=== PATIENT | male | born 1935 | race Hispanic/Latino ===

== ENCOUNTER 2018-02-18 19:09 | Inpatient (IN) | payer MEDICARE ==
[2018-02-18 19:44] LABS: #Lymphocytes 0.9 thou/uL (1.20-3.40); #Monocytes 0.5 thou/uL (0.11-0.59); #Neutrophils 6.6 thou/uL (1.40-6.50); %Eosinophils 0.3 % (0.0-10.0); %Monocytes 5.7 % (0.0-10.0); Hemoglobin 13.7 g/dL (14.0-18.0); Mean Corpuscular HGB CONC 33.6 g/dL (32.0-36.0); Mean Corpuscular Hemoglobin 31.7 pg (27.0-31.0); Mean Corpuscular Volume 94.3 fL (78.0-98.0); Mean Platelet Volume 7.6 fL (7.4-10.4); Platelet Count 140 thou/uL (130-400); RBC Distribution Width 13.5 % (11.5-14.5); Red Blood Cell (RBC) Count 4.33 mill/uL (4.70-6.10)
[2018-02-18 20:01] LABS: Troponin I 0.038 ng/mL (< 0.028)
[2018-02-18 20:18] LABS: ALT (SGPT) 35 U/L (8-55); AST (SGOT) 52 U/L (5-34); Albumin 3.3 g/dL (3.4-4.8); Alkaline Phosphatase 199 U/L (40-150); Anion Gap 17 mmol/L (10-20); BUN (Urea Nitrogen) 10 mg/dL (8.4-25.7); Bilirubin, Total 0.7 mg/dL (0.2-1.2); CK (CPK) 59 U/L (30-200); Calc. Creatinine Clearance 0 mL/min (70-130); Calcium 8.1 mg/dL (7.8-10.44); Carbon Dioxide 20 mmol/L (23-31); Chloride 107 mmol/L (98-107); Estimated GFR-MDRD 67; Globulin 3.1 g/dL (2.4-3.5); Glucose 117 mg/dL (83-110); Potassium 4.6 mmol/L (3.5-5.1); Protein, Total 6.4 g/dL (5.8-8.1); Sodium 139 mmol/L (136-145)
[2018-02-18 20:37] LABS: Bilirubin Negative (Negative); Blood, Urine Trace (Negative); Clarity CLEAR (Clear); Glucose, Urine (Dipstick) Negative (Negative); Leukocyte Small (Negative); Nitrite Negative (Negative); Protein, Urine (Dipstick) Negative (Neg-Trace)
[2018-02-18 20:39] LABS: Bacteria/HPF 2+ HPF (None Seen); Hyaline Casts/LPF 0-3 HYALINE CAST LPF (0-3 Hyaline); RBC/HPF 0-3 HPF (0-3); Squamous Epithelial None Seen HPF (0-3)
--- NOTE | 2018-02-18 20:59 | RAD ---
AP VIEW CHEST: 02/18/18 HISTORY: Cough, congestion, bodyaches. AP view chest is obtained on 02/18/18. AP view chest demonstrates a left subclavian Mediport catheter in place. The lungs are well aerated. No evidence of acute intrathoracic abnormality seen. No evidence of effusions, pneumonia or pneumotho rax seen. IMPRESSION: Unremarkable AP view chest. POS: [facility]
[2018-02-18] MEDS ORDERED: Carvedilol 6.25 MG TAB PO SCH (21:45)
[2018-02-18] MEDS ORDERED: Acetaminophen 325 MG TAB PO PRN (22:17)
[2018-02-18] MEDS ORDERED: Ondansetron ODT 4 MG TAB SL PRN (22:17)
[2018-02-18] MEDS ORDERED: Ondansetron PF 4 MG/2 ML Vial IVP PRN (22:17)
[2018-02-18 22:26] VITALS: BMI 24.7
[2018-02-18] MEDS ORDERED: cefTRIAXone\\ROCEPHIN 2 GM in Sodium Chloride 0.9% 100 ML IVPB SCH (23:00)
[2018-02-18 23:31] LABS: Lactic Acid 1.7 mmol/L (0.5-2.2)
[2018-02-19 08:54] LABS: INR-International Normal Ratio 1.9; PTT 45.1 SEC (22.9-36.1); Prothrombin Time 21.9 SEC (12.0-14.7)
[2018-02-19] MEDS ORDERED: Warfarin Sodium 1 MG TAB PO SCH (09:00)
[2018-02-19] MEDS ORDERED: Amlodipine 5 MG TAB PO SCH (09:00)
[2018-02-19] MEDS ORDERED: Carvedilol 6.25 MG TAB PO SCH (09:00)
[2018-02-19 09:03] LABS: Anion Gap 10 mmol/L (10-20); BUN (Urea Nitrogen) 12 mg/dL (8.4-25.7); Calc. Creatinine Clearance 68 mL/min (70-130); Calcium 8.3 mg/dL (7.8-10.44); Carbon Dioxide 26 mmol/L (23-31); Chloride 108 mmol/L (98-107); Estimated GFR-MDRD 73; Glucose 99 mg/dL (83-110); Potassium 3.8 mmol/L (3.5-5.1); Sodium 140 mmol/L (136-145)
[2018-02-19 09:09] LABS: Troponin I 0.051 ng/mL (< 0.028)
--- NOTE | 2018-02-19 09:20 | HP ---
CHIEF COMPLAINT: Cough. HISTORY OF PRESENT ILLNESS: This patient is an 83-year-old male, who has an active diagnosis of a sk in cancer that is growing out of his navel area. He does not know what kind it is. He says he is ge tting chemotherapy twice a month for 3 months and he is on his last cycle. He reports that 2 days ag o he started having cough and it became worse yesterday. He has a lot of noise that he can hear in h is chest, especially when he coughs, but he has not been able to produce much sputum. He has had no fever. No shortness of breath except when he is having paroxysms of cough. He has had no chest pain . He states that he actually is feeling much better at the moment than he did yesterday. REVIEW OF SYSTEMS: Ten-system review notable for some numbness, tingling and increased sensitivity i n his fingertips which he relates to the chemotherapy. He also reports that he has had some difficul ty swallowing cold liquids at times because he feels like he has increased sensitivity in his throat causing him to occasionally choke. Generally speaking, he does not have difficulty swallowing. Othe rwise, a 10-system review was negative except for those things mentioned in the history of present il lness. PAST MEDICAL HISTORY: Notable for prior colon cancer, the skin cancer as mentioned above, atrial fib rillation, hypertension. PAST SURGICAL HISTORY: Partial colon resection, secondary to colon cancer that was causing some dist al colonic obstruction. FAMILY HISTORY: He is unaware of any medical problems in his parents, believe they of "old age. " SOCIAL HISTORY: The patient is a nonsmoker, nondrinker, nondrug user. He is . He is [employer] and his or his son will be his surrogate decision makers. ALLERGIES: None. MEDICATIONS: Warfarin 0.5 mg p.o. q. day; Lanoxin 0.125 p.o. q. day; Coreg, dose is not actually kno wn; amlodipine, dose not known. PHYSICAL EXAMINATION: VITAL SIGNS: Temperature 98.3, T-max 99.7, pulse 99, respirations 18, O2 sat 94% on room air, blood pressure 130/81. GENERAL APPEARANCE: Age appropriate male. He is in no distress. He is awake, alert, oriented, plea ujles, cooperative, speaking in full sentences. HEENT: Pupils are reactive. He has significant bilateral arcus senilis. He has no OP lesions. Sli ghtly dry oral mucosa. NECK: Supple and symmetric. LUNGS: Have slightly diminished breath sounds. He has some modest rales/wheezing in the left base. ABDOMEN: Soft, nontender, nondistended, positive bowel sounds, no masses, no organomegaly. There is a 2 cm skin colored nodule growing out of the navel area with some slight drainage coming from aroun d this. EXTREMITIES: Warm and dry with no cyanosis, clubbing or edema. LABORATORY AND IMAGING DATA: White count was 8.0, hemoglobin 13.7, platelets 140, he has got 83 neut rophils, 11 lymphocytes. Sodium 139, potassium 4.6, chloride 107, CO2 of 20, BUN 10, creatinine 1.06 , glucose 117. Initial lactic acid 2.7, repeat 1.7. AST 52, ALT 35, alkaline phosphatase 199. Trop onin 0.038. Albumin 3.3. Urinalysis trace blood, small leukocyte esterase, 0-3 red cells, 4-6 white cells, 2+ bacteria. Chest x-ray was unremarkable. IMPRESSION AND PLAN: 1. Cough with a low grade fever and abnormal lung exam concerning for possibility of pneumonia. The patient had a negative initial chest x-ray. I am going to go ahead and repeat that now as I am conc erned that this may be manifesting at some point on the chest x-ray. He has been given vancomycin in the emergency department and now has Rocephin ordered. We will go ahead and add azithromycin to ful ly cover for community-acquired pneumonia. Not sure what the patient's chemotherapy regimen is, look s like he has got a relatively healthy immune system at this point. Also concerned about the fact th at he was reporting some choking when trying to drink cold liquids that he could have potentially had some element of aspiration. We will ask for speech therapy evaluation just to ensure his swallow is appropriate. 2. Atrial fibrillation. The patient has chronic atrial fibrillation. He is on digoxin and warfarin . Currently, he is rate controlled and his monitor shows what looks like atrial fibrillation with fr equent aberrancy. He did require some IV diltiazem last evening after his heart rate did not respond to initial fluid bolus, but he appears to be rate controlled now. We will check his INR. 3. Elevated troponin. This is likely due to acute illness and some atrial fibrillation. We will re check that value now. I suspect it is purely demand ischemia and do not suspect he is having any acu te occlusive event. 4. Slight elevation of liver enzymes given his history of colon cancer and skin cancer. We will get an ultrasound of his liver just to ensure there are no metastatic type lesions. 5. Hypertension. We will continue with the patient's home regimen; however, we will need to clarify the dosing. 6. Skin cancer. The patient still has a mass lesion in the navel area. He is still in the process of receiving chemotherapy. No additional workup indicated at this time. 7. The patient initially met criteria for sepsis; however, I do not believe the patient had sepsis. By virtue of the fact, that his tachycardia was related to atrial fibrillation, not a systemic infla mmatory response syndrome and I believe his elevated lactic acid is also attributable to decreased pe rfusion from the atrial fibrillation and tachycardia.
[2018-02-19] MEDS: Azithromycin 500 MG in Sodium Chloride 0.9% 250 ML 250 ML IVPB SCH (09:45)
[2018-02-19] MEDS: Digoxin 0.125 MG TAB PO SCH (09:45)
[2018-02-19 10:59] LABS: #Lymphocytes 1.5 thou/uL (1.20-3.40); #Monocytes 0.8 thou/uL (0.11-0.59); %Basophils 0.2 % (0.0-1.0); %Eosinophils 0.2 % (0.0-10.0); %Lymphocytes 18.1 % (21.0-51.0); %Monocytes 9.1 % (0.0-10.0); %Neutrophils 72.3 % (42.0-75.0); Hemoglobin 11.2 g/dL (14.0-18.0); Mean Corpuscular HGB CONC 33.5 g/dL (32.0-36.0); Mean Corpuscular Hemoglobin 31.8 pg (27.0-31.0); Mean Platelet Volume 7.1 fL (7.4-10.4); Platelet Count 113 thou/uL (130-400); RBC Distribution Width 13.5 % (11.5-14.5); Red Blood Cell (RBC) Count 3.52 mill/uL (4.70-6.10); White Blood Cell (WBC) Count 8.2 thou/uL (4.8-10.8)
[2018-02-19 11:00] LABS: Large Platelets SLIGHT; MDiff Complete? YES; Microcytosis SLIGHT = 6-15 cells (100X) (0-5/hpf); PLT Morphology Comment Appears Decreased; Polychromasia SLIGHT = 2-3 cells (100X) (0-2/hpf)
[2018-02-19] MEDS: Sodium Chloride 0.9% 1,000 ML IV SCH (11:25)
--- NOTE | 2018-02-19 13:04 | ULT ---
RIGHT UPPER QUADRANT ULTRASOUND: HISTORY: Elevated LFTs. FINDINGS: The liver demonstrates homogeneous echotexture without focal mass or intrahepatic ductal dilatation. The gallbladder is contracted. Shadowing calculi are seen. No pericholecystic fluid is identified. The common duct measures 4 mm in diameter. The right kidney and visualized portions of the pancrea s are unremarkable. No free fluid is seen in the Morison's pouch. IMPRESSION: Cholelithiasis. POS: [facility]
--- NOTE | 2018-02-19 13:12 | RAD ---
PORTABLE CHEST 1 VIEW: DATE: 02/19/2018. TIME: 8:24 a.m. HISTORY: Cough. FINDINGS: The heart size is normal. The lungs are expanded without focal areas of consolidation, pneumothorax, or pleural effusions. A left subclavian Port-A-Cath is seen with the tip in the projection of the S VC. IMPRESSION: No radiographic evidence of acute cardiopulmonary process. POS: [facility]
[2018-02-19] MEDS ORDERED: Warfarin Sodium 5 MG TAB PO SCH (17:00)
[2018-02-19] MEDS: Carvedilol 25 MG TAB PO SCH (21:46)
[2018-02-19] MEDS ORDERED: cefTRIAXone\\ROCEPHIN 1 GM in Sodium Chloride 0.9% 100 ML IVPB SCH (23:00)
[2018-02-20] MEDS: Sodium Chloride 0.9% 1,000 ML IV SCH ×2 (00:17→00:54)
[2018-02-20 05:41] LABS: #Monocytes 0.6 thou/uL (0.11-0.59); #Neutrophils 3.4 thou/uL (1.40-6.50); %Eosinophils 0.4 % (0.0-10.0); %Lymphocytes 20.5 % (21.0-51.0); %Monocytes 11.9 % (0.0-10.0); %Neutrophils 67.2 % (42.0-75.0); Hemoglobin 11.5 g/dL (14.0-18.0); Mean Corpuscular HGB CONC 34.2 g/dL (32.0-36.0); Mean Corpuscular Hemoglobin 32.4 pg (27.0-31.0); Mean Corpuscular Volume 94.6 fL (78.0-98.0); Mean Platelet Volume 7.5 fL (7.4-10.4); Platelet Count 109 thou/uL (130-400); RBC Distribution Width 13.5 % (11.5-14.5); Red Blood Cell (RBC) Count 3.56 mill/uL (4.70-6.10)
[2018-02-20 05:45] LABS: INR-International Normal Ratio 1.7; Prothrombin Time 19.9 SEC (12.0-14.7)
[2018-02-20 05:50] LABS: ALT (SGPT) 21 U/L (8-55); AST (SGOT) 24 U/L (5-34); Albumin 2.8 g/dL (3.4-4.8); Alkaline Phosphatase 127 U/L (40-150); Bilirubin, Direct 0.3 mg/dL (0.1-0.3); Bilirubin, Total 0.6 mg/dL (0.2-1.2); Protein, Total 5.5 g/dL (5.8-8.1)
[2018-02-20 05:54] LABS: Anion Gap 10 mmol/L (10-20); BUN (Urea Nitrogen) 13 mg/dL (8.4-25.7); Calc. Creatinine Clearance 76 mL/min (70-130); Calcium 7.9 mg/dL (7.8-10.44); Carbon Dioxide 25 mmol/L (23-31); Chloride 110 mmol/L (98-107); Estimated GFR-MDRD 83; Glucose 98 mg/dL (83-110); Potassium 3.4 mmol/L (3.5-5.1); Sodium 142 mmol/L (136-145)
[2018-02-20 07:46] VITALS: BP 184/81; TEMP 98.3
[2018-02-20] MEDS ORDERED: Amlodipine 10 MG TAB PO SCH (09:00)
[2018-02-20] MEDS: Carvedilol 25 MG TAB PO SCH (09:07)
[2018-02-20] MEDS: Digoxin 0.125 MG TAB PO SCH (09:07)
[2018-02-20] MEDS: Azithromycin 500 MG in Sodium Chloride 0.9% 250 ML 250 ML IVPB SCH (09:16)
--- NOTE | 2018-02-20 19:36 | DIS ---
DATE OF ADMISSION: 02/18/2018 DATE OF DISCHARGE: 02/20/2018 DISCHARGE DIAGNOSES: 1. Bronchitis. 2. Atrial fibrillation with rapid ventricular response. 3. Elevated troponin secondary to demand ischemia. 4. Slight transaminitis. 5. Skin cancer. 6. Mild thin liquid dysphagia. HISTORY: The patient is an 83-year-old male who presented to the emergency department with worsening cough that was slightly productive. In the emergency department, the patient was found to be in atrial fibrillation with a rapid ventricular response. He required some IV hydralazine and had some improvement. The patient had not had his usual medications and once those were reinstituted, his heart rate settled down. HOSPITAL COURSE: The patient had an initial low-grade fever with white count of 8, negative chest x-ray. Lactic acid of 2.7 with a repeat of 1.7. Troponins were slightly elevated at 0.38 and he had some evidence of some bacteria in the urine. The patient was treated with Rocephin and azithromycin for possible new pneumonia as he had some left basilar rales noted on exam; however, repeat chest x-ray did not reveal any infiltrate. With that, this was felt to be more likely related to the bronchitis. The patient's heart rate remains well controlled in the 70s once he was back on his usual home medications. His troponins did increase only to 0.051 and this was felt to be purely due to demand ischemia from the initial tachycardia he had with the fibrillation. The patient's INR was within a reasonable range and he remained on the Coumadin throughout. His urine did ultimately grow an E. coli, but colony counts were only 50-75,000 and it was sensitive to the Rocephin with which he was being treated. It is felt like this was more likely a colonization. The patient had slight elevation of his liver enzymes given his history of colon cancer and his active treatment for skin cancer. Ultrasound was performed which failed to reveal any evidence of any type of metastatic lesions. This was felt to be stable. The patient was reporting that his symptoms were feeling better. His vital signs were pretty stable and he was felt to be appropriate for discharge to home. The patient had reported that he was receiving treatment for skin cancer that was growing out of his navel. He did have a 2-cm skin covered fleshy mass growing out of the naval area. The patient reported he had developed some mild dysphagia when drinking cold liquids led to some cough which he related to the chemotherapy. It was concerning that this might be contributing to the bronchitis picture. He was evaluated by speech therapy and recommendations were for nectar thick liquids. This was explained to the patient in detail and expressed understanding as did his family. PHYSICAL EXAMINATION: VITAL SIGNS: On the day of discharge, temperature is 98.3, pulse 66, respirations 15, O2 sat 93% on room air, BP ranged from 155/82 to 184/81. GENERAL: Patient is awake, alert, oriented, pleasant, cooperative. HEART: His heart was regular with some bigeminy, but no murmurs. LUNGS: Clear to auscultation bilaterally with no wheezes or rales. ABDOMEN: Soft, nontender, nondistended, positive bowel sounds. No masses and organomegaly. EXTREMITIES: Warm and dry without edema. LABORATORY DATA: White count was 5.0, hemoglobin 11.5, platelets 109. INR 1.7 , sodium 142, potassium 3.4, chloride 110. DISCHARGE INSTRUCTIONS: Disposition, the patient is discharged to home. He will have a heart healthy diet and nectar thick liquids. His activity is as tolerated. DISCHARGE MEDICATIONS: He will be on Augmentin 875 one p.o. b.i.d., warfarin 5 mg every day, digoxin 0.125 every day, Coreg 25 mg b.i.d., amlodipine 10 mg every day. FOLLOWUP: He is to follow up with Cardiology with Dr. Matta and with his primary care provider. He can return to the emergency department should he have any problems prior to that time. BRITTNEY
== END 2018-02-20 11:28 | disposition home or self-care (01) | DRG 202 ==
LOC: ERS 19:09 → 2NO 22:10
PROVIDERS: ADMIT Internal Medicine; ATTEND Internal Medicine
DX: J40 Bronchitis, not specified as acute or chronic (principal); I24.8 Other forms of acute ischemic heart disease; I48.2 Chronic atrial fibrillation; R74.0 Nonspecific elevation of levels of transaminase and lactic acid dehydrogenase [LDH]; R13.19 Other dysphagia; Z85.038 Personal history of other malignant neoplasm of large intestine; C44.509 Unspecified malignant neoplasm of skin of other part of trunk; Z91.81 History of falling; Z79.01 Long term (current) use of anticoagulants; I10 Essential (primary) hypertension
CPT/HCPCS: 36415; 71045; 71046; 76705; 80048; 80053; 80076; 81003; 81015; 82550; 82553; 83605; 84484; 85025; 85610; 85730; 87040; 87077; 87086; 87186; 93005; 96361; 96365; 96375; G8996-GN-CJ; G8997-GN-CJ; J0456; J0696; J3370; J7050